=== PATIENT | female | born 1970 | race African-American/Black ===

== ENCOUNTER 2020-12-17 21:46 | Emergency (ER) | payer BC, OTHER ==
[~2020-12-17] VITALS: Ht 165.1 cm; Wt 103.7 kg
--- NOTE | 2020-12-17 22:17 | NUR ---
This is a 50 yo female who presents to the ER c/o mid low back pain with nausea and vomiting since yesterday evening. Pt denies diarrhea. Pt denies painful urination. Pt reports diffuse lower abd pain, nontender to palp for RN. Pt report mid low back pain. Pt AO x 4. Skin warm and dry. Resp even and unlabored. Pt on cont BP and SPO2 monitors. NIRMAL Alberto at bedside for eval. Call light within reach. Will cont to monitor pt.
[2020-12-17] MEDS ORDERED: IBUP-653 PO (22:22)
[2020-12-17] MEDS ORDERED: LOSA1TAB19 PO (22:22)
[2020-12-17] MEDS ORDERED: MELO7.5T31 PO (22:22)
[2020-12-17] MEDS ORDERED: KETOROLAC 30 MG/1 ML IVPush ONE ×2 (22:30→23:30)
[2020-12-17] MEDS ORDERED: ONDANSETRON 2MG/ML, 2ML IVPush ONE (22:30)
[2020-12-17 22:47] LABS: BASOPHILS % (AUTO) 1 % (0-1); EOSINOPHILS % (AUTO) 0 % (1-7); LYMPHOCYTES % (AUTO) 18 % (22-44); MEAN CORPUSCULAR HEMOGLOBIN 32.2 pg (27.0-34.8); MEAN CORPUSCULAR HGB CONC 36.3 g/dL (32.4-35.8); MEAN PLATELET VOLUME 9.2 fL (7.4-10.4); MONOCYTES % (AUTO) 3 % (2-9); NEUTROPHILS % (AUTO) 78 % (42-75); PLATELET COUNT 255 x10^3/uL (130-400); RED BLOOD COUNT 4.43 x10^6/uL (3.82-5.3); RED CELL DISTRIBUTION WIDTH 15.2 % (9.6-15.2)
[2020-12-17] MEDS ORDERED: KETOROLAC 30 MG/1 ML ONE (22:48)
[2020-12-17] MEDS ORDERED: ONDANSETRON ODT 4 MG ONE (22:48)
[2020-12-17 22:49] LABS: MD NO
[2020-12-17 23:00] LABS: ALANINE AMINOTRANSFERASE 27 U/L (12-78); ALBUMIN 3.6 g/dL (3.4-5.0); ANION GAP 5 mmol/L (5-15); CALCIUM 9.2 mg/dL (8.5-10.1); CHLORIDE 106 mmol/L (98-107); CREATININE 0.65 mg/dL (0.55-1.02)
[2020-12-17 23:04] LABS: ALKALINE PHOSPHATASE 67 U/L (45-117); BILIRUBIN,TOTAL 0.5 mg/dL (0.2-1.0); TOTAL PROTEIN 8.2 g/dL (6.4-8.2)
--- NOTE | 2020-12-17 23:06 | NUR ---
Pt steady upon ambulation to restroom and back to [facility]. Urine sample obtained and sent to lab. Pt medicated as ordered for pain/nausea. Pt reports intermittent abd pain. Pt positioned for comfort and provided with warm blanket. Pt on cont bp and spo2 monitors. Call light within reach. Will cont to monitor pt.
[2020-12-17 23:22] LABS: MICROSCOPIC INDICATED
[2020-12-17] MEDS ORDERED: ONDANSETRON ODT 4 MG PO ONE (23:30)
[2020-12-18] MEDS ORDERED: CEFTRIAXONE 1,000 MG in DEXTROSE 5% 50 ML IVPB ONE (01:00)
--- NOTE | 2020-12-18 01:05 | NUR ---
NIRMAL Alberto at bedside for recheck/explanation of results. Pt currently denies pain. Pt AO x 4. Pt on cont BP and SPO2 monitors. Pt provided with pillow and positioned for comfort. Call light within reach. Will cont to monitor pt.
[2020-12-18] MEDS ORDERED: CEFDINIR 300 MG CAPSULE ONE (01:09)
[2020-12-18] MEDS ORDERED: CEFDINIR 300 MG CAPSULE PO ONE (01:30)
[2020-12-18 01:56] VITALS: BP 140/95
== END 2020-12-18 01:58 | disposition home or self-care (01) ==
LOC: ED 22:16
DX: N10 Acute pyelonephritis (principal); I10 Essential (primary) hypertension; M19.90 Unspecified osteoarthritis, unspecified site
CPT/HCPCS: 36415; 74176; 80053; 81001; 83690; 84703; 85025; 87086; 96374; 99285; J1885; Q0162